=== PATIENT | female | born 1935 | race Caucasian/White ===

== ENCOUNTER → 2019-06-15 | Day surgery (SDC) | payer MEDICARE ==
[~2019-06-15] MED LIST: CALC-71 PO; CHOL200078 PO; EPINEPHrine 1 MG/ML VIAL ONE; FLUT9.9S NS; IV RINGERS,LACTATED 1000ML 1,000 ML IV SCH; LIDOCAINE 1% Multi-Dose 20 ML VIAL. ONE; LIDOCAINE 2% VISCOUS 100 ML BOTTLE. ONE; LIDOCAINE 4% TOPICAL 50 ML SOLUTION. ONE; LISI-334 PO; METO-247 PO; MULT1CAP15 PO; OMEP20CA16 PO; PROPOFOL 20 ML IV ONE; VIT1CAPS12 PO
[2019-06-15 14:10] VITALS: BP 168/77
--- NOTE | 2019-06-15 14:14 | OP ---
DATE OF SURGERY: 06/15/2019 PROCEDURES: Bronchoscopy, bronchoalveolar lavage. INDICATIONS: The patient presented with respiratory failure, idiopathic pulmonary fibrosis diagnosed in 2011. She recently had increasing oxygen requirement. CT revealed right upper lobe alveolitis, pneumonitis. She is undergoing a diagnostic bronchoscopy. Risks, benefits and alternatives reviewed with the patient and family, they consented. SEDATION: Please see anesthesia's notes. DESCRIPTION OF PROCEDURE: A timeout was performed prior to initiating the procedure. Vital signs and O2 saturations were maintained within normal limits throughout the procedure. The bronchoscope was passed through the right naris. The vocal cords were identified. Vocal cords were anesthetized with a total of 5 mL of 4% lidocaine. The bronchoscope was passed through the vocal cords into the proximal trachea, which was normal. The distal trachea was likewise normal. The right and left segments and subsegments were visualized. There was no endobronchial lesion. The scope was wedged into the right upper lobe segment and a bronchoalveolar lavage was performed. The scope was then wedged into the left lower lobe segment and a lavage was likewise performed. FINDINGS: 1. Normal vocal cords. 2. No endobronchial lesion. 3. No purulent material seen in the airway. PLAN: We will await the BAL results. The patient tolerated procedure well with no immediate complications. SAUNDRA GABRIEL MD DR: ALYSE/rani JOB#: [id number] / [id number] ONESIMO Snow MD
== END | disposition home or self-care (01) ==
LOC: SURG 12:00
PROVIDERS: ATTEND Internal Medicine Pulmonary Disease
DX: J18.8 Other pneumonia, unspecified organism (principal); J84.112 Idiopathic pulmonary fibrosis; I10 Essential (primary) hypertension; J84.10 Pulmonary fibrosis, unspecified; Z87.891 Personal history of nicotine dependence; Z79.899 Other long term (current) drug therapy; Z98.890 Other specified postprocedural states
CPT/HCPCS: 31624; 36415; 86713; 87070; 87102; 87116; 87205; 88112; 88312; J2704; J3490; 31622; J0171